=== PATIENT | female | born 1960 | race Caucasian/White ===

== ENCOUNTER → 2017-01-20 | Outpatient (CLI) | payer OTHER ==
[~2017-01-20] VITALS: Ht 170.2 cm; Wt 77.1 kg
[~2017-01-20] MED LIST: AGM875T PO; ASP325TEC PO; AZITHROMYCIN 500 MG/NS 250 ML IVPB IV ONE; BPR150TCR PO; BUPR150T6 PO; FLUT1DIS26 IH; HYOS0.1283 SL; IBUP-15 PO; LORA0.5T PO; LORA1TAB PO; NS (IVPB) 50 ML ONE; NS IV 1000 ML 1,000 ML IV ONE; NS IV 1000 ML 1,000 ML ONE; ONDA8TAB13 PO; PROMETHAZINE/ CODEINE SYRUP 5 ML UDC PO ONE; SODIUM CHLORIDE (ADD-VANTAGE) 250 ML ONE; TRM50T PO; cefTRIAXone 1 GM (ROCEPHIN) VIAL ONE; cefTRIAXone 1 GM/NS 50 ML IVPB IV ONE
--- OUTSIDE RECORDS SUMMARY | 2017-01-20 12:10 | XMS REPORT | Continuity of Care Document ---
Author Author [facility] Organization [facility] Address Unknown Phone Unavailable Care Team Providers Care Spd Manager Name Role Phone No Pcp, Na PCP Unavailable Source Comments Some departments are not documenting in the electronic medical record. If you do not see the information that you expected, contact Release of Information in the Health Information Management department at [phone] for further assistance in locating additional records.[facility] Active Allergies and Adverse Reactions Not on File Current Medications Not on file Active Problems Not on file Social History Tobacco Use Types Packs/Day Years Used Date Never Assessed Plan of Care Health Maintenance Due Date Last Done Comments Physical (Comprehensive) 1965 Exam Pertussis Vaccine 1969 Tetanus Vaccine 1975 Cervical Cancer Screening 1979 Breast Cancer Screening 1998 Colorectal Cancer 2008 Screening Influenza Vaccine 07/23/2016 Results from Last 3 Months Not on file
[2017-01-20 12:46] LABS: MEAN PLATELET VOLUME 11.6 FL (7.4-10.4); RED BLOOD COUNT 4.02 10^6/uL (4.35-5.85); RED CELL DISTRIBUTION WIDTH 12.4 % (10.0-14.5); WHITE BLOOD COUNT 5.9 10^3/uL (4.3-11.0)
--- NOTE | 2017-01-20 12:51 | Diagnostic Imaging Report ---
Portable upright radiograph of the chest. INDICATION: Pneumonia. COMPARISON: 04/15/2013. FINDINGS: The lungs are hyperinflated. Mild thickening in the interstitial markings seen. The heart size is normal. No effusion or pneumothorax. The mediastinum and dorota appear unremarkable. Surgical clips projecting over the lower thorax bilaterally seen. IMPRESSION: Hyperinflated clear lungs. Dictated by: Dictated on workstation # [id number]
[2017-01-20 12:55] VITALS: BP 100/59
[2017-01-20 13:06] LABS: ALANINE AMINOTRANSFERASE 30 U/L (0-55); ALBUMIN 4.1 G/DL (3.2-4.5); ANION GAP 12 MMOL/L (5-14); ASPARTATE AMINO TRANSFERASE 37 U/L (5-34); BILIRUBIN,TOTAL 0.4 MG/DL (0.1-1.0); BLOOD UREA NITROGEN 12 MG/DL (7-18); BUN/CREATININE RATIO 15; CARBON DIOXIDE 20 MMOL/L (21-32); CHLORIDE 110 MMOL/L (98-107); CREATININE SERUM 0.79 MG/DL (0.60-1.30); GFR ESTIMATED > 60; GLUCOSE 100 MG/DL (70-105); POTASSIUM 3.9 MMOL/L (3.6-5.0); SODIUM 142 MMOL/L (135-145); TOTAL PROTEIN 6.2 G/DL (6.4-8.2)
[2017-01-20 15:17] VITALS: BP 100/59
== END ==
LOC: SDC 12:05
PROVIDERS: ATTEND Family Medicine
DX: J18.9 Pneumonia, unspecified organism (principal); E86.0 Dehydration
CPT/HCPCS: 36415; 71010; 80053; 85027; 96365; 96367

== ENCOUNTER 2017-01-22 17:31 | Emergency (ER) | payer OTHER ==
[~2017-01-22] VITALS: Ht 170.2 cm; Wt 77.1 kg
[~2017-01-22 17:31] MED LIST changes: -HYOS0.1283 SL; -NS IV 1000 ML 1,000 ML IV SCH; -ONDA8TAB13 PO
--- OUTSIDE RECORDS SUMMARY | 2017-01-22 17:36 | XMS REPORT | Continuity of Care Document ---
Author Author [facility] Organization [facility] Address Unknown Phone Unavailable Care Team Providers Care Preparation Supervisor Name Role Phone No Pcp, Na PCP Unavailable Source Comments Some departments are not documenting in the electronic medical record. If you do not see the information that you expected, contact Release of Information in the Health Information Management department at [phone] for further assistance in locating additional records.[facility] Active Allergies and Adverse Reactions Not on [...]
[2017-01-22] MEDS ORDERED: NS IV 1000 ML 1,000 ML IV ONE (18:28)
[2017-01-22] MEDS ORDERED: KETOROLAC 30 MG/ML VIAL IVP STA (18:28)
--- NOTE | 2017-01-22 19:00 | ED General ---
General Chief Complaint: Fever-Adult/Adol Stated Complaint: FLU B Nursing Triage Note: PT REPORTS THAT SHE TESTED POSITIVE FOR INFLUENZA B TODAY AT DR ZARATE OFFICE AND WAS SENT TO HOSPITAL FOR OUTPT IV THERAPY. SHE REPORTS THAT SHE HAS FEVER, DIARRHEA AND GENERALIZED MALAISE. SHE STATES SHE DOESNT FEEL THOUGH THE IV FLUIDS HAVE HELPED HER. SHE ALSO REPORTS THAT SHE GOT A PRESCRIPTION FOR TAMIFLU TODAY AND TOOK THE FIRST DOSE AT APPROX 1700. SHE REPORTS TAKING TYLENOL AT 16[address] FOR F[address] SHE STATES DR ZARATE OFFICE INSTRUCTED HER TO COME TO THE ED FOR POSSIBLE ADMISSION TO THE HOSPITAL. Nursing Sepsis Screen: No Definite Risk Source of Information: Patient Exam Limitations: No Limitations (SHAYE ISABEL MD) History of Present Illness Time Seen by Provider: 18:40 Initial Comments Here with report overall not feeling well. This is been going on for a few days. She is had outpatient IV fluids on 2 separate days as well as an x-ray 2 days ago. She was noted to have influenza B today and started on Tamiflu tonight. She also reports being on some antibiotics. Reports that she has had fairly significant diarrhea today and noted that it was somewhat red appearing this evening. Timing/Duration: 2-3 Days, Getting Worse Severity: Moderate, Severe Associated Systoms: No Chest Pain, No Cough, Fever/Chills Nausea/VomitingNo Shortness of Air, Weakness (SHAYE ISABEL MD) Allergies and Home Medications Allergies Coded Allergies: morphine (Unverified Allergy, Unknown, 06/08/11) Home Medications Bupropion Hcl 150 Mg Tab.sr.24h 150 MG PO DAILY (Reported) Lorazepam 0.5 Mg Tablet 0.5 MG PO HS PRN PRN (Reported) PRN SLEEP Constitutional: chills fever malaise EENTM: nose congestion Respiratory: coughNo short of breath Cardiovascular: no symptoms reported Gastrointestinal: see HPI abdominal pain (overall cramping) diarrhea nauseaNo vomiting Musculoskeletal: no symptoms reported Skin: no symptoms reported Psychiatric/Neurological: No Symptoms Reported (SHAYE ISABEL MD) All Other Systems Reviewed Negative Unless Noted: Yes (SHAYE ISABEL MD) Past Bmpmidt-Qmhtca-Rnscar Hx Patient Social History Alcohol Use: Denies Use Recreational Drug Use: No Smoking Status: Never a Smoker 2nd Hand Smoke Exposure: No Recent Foreign Travel: No Contact w/Someone Who Travel: No Recent Infectious Disease Expo: No Recent Hopitalizations: No (SHAYE ISABEL MD) Immunizations Up To Date Tetanus Booster (TDap): Unknown (SHAYE ISABEL MD) Seasonal Allergies Seasonal Allergies: No (SHAYE ISABEL MD) Surgeries HX Surgeries: Yes (BILAT MASTECTOMY IN 2010) Surgeries: Hysterectomy (SHAYE ISABEL MD) Respiratory Hx Respiratory Disorders: Yes Respiratory Disorders: Pneumonia (SHAYE ISABEL MD) Cardiovascular Hx Cardiac Disorders: No (SHAYE ISABEL MD) Neurological Hx Neurological Disorders: No (SHAYE ISABEL MD) Reproductive System Hx Reproductive Disorders: No Sexually Transmitted Disease: No BUSINESS PROCESS EXPERT History: Hysterectomy (SHAYE ISABEL MD) Genitourinary Hx Genitourinary Disorders: No (SHAYE ISABEL MD) Gastrointestinal Hx Gastrointestinal Disorders: No (SHAYE ISABEL MD) Musculoskeletal Hx Musculoskeletal Disorders: No (SHAYE ISABEL MD) Endocrine Hx Endocrine Disorders: No (SHAYE ISABEL MD) HEENT HX ENT Disorders: No Loss of Vision: Denies Hearing Impairment: Denies (SHAYE ISABEL MD) Cancer Hx Cancer: Yes Cancer: Breast (SHAYE ISABEL MD) Psychosocial Hx Psychiatric Problems: Yes Behavioral Health Disorders: Anxiety (SHAYE ISABEL MD) Integumentary HX Skin/Integumentary Disorder: No (SHAYE ISABEL MD) Blood Transfusions Hx Blood Disorders: No (SHAYE ISABEL MD) Reviewed Nursing Assessment Reviewed/Agree w Nursing PMH: Yes (SHAYE SIABEL MD) Family Medical History Significant Family History: No Pertinent Family Hx (SHAYE ISABEL MD) Physical Exam-Suspected Sepsis Physical Exam Vital Signs Vital Sign - Last 12Hours 01/22/17 18:07 Temp 100.2 Pulse 88 Resp 16 B/P 101/55 Pulse Ox 95 O2 Delivery Room Air (ARIE KANG) Vital Signs Capillary Refill : Less Than 3 Seconds (SHAYE ISABEL MD) Blood Pressure Mean: 70 General Appearance: No Apparent Distress WD/WN HEENT: PERRL/EOMI Pharynx Normal Neck: Non Tender Supple Respiratory: Lungs Clear Normal Breath Sounds Cardiovascular: No Murmur Tachycardia Gastrointestinal: Soft Tenderness (mild diffusely greatest over the suprapubic region) Rectal: Normal Rectal Tone Heme Negative StoolNo Hemorrhoids, No Tenderness Back: Normal Inspection No CVA Tenderness No Vertebral Tenderness Extremity: Normal Capillary Refill Non Tender No Calf Tenderness Neurologic/Psychiatric: Alert Oriented x3 Skin: normal color warm/dryNo rash (SHAYE ISABEL MD) Progress/Results/Core Measures Suspected Sepsis Recent Fever Within 48 Hours: Yes Infection Criteria Present: None New/Unexplained Altered Menta: No Sepsis Screen: No Definite Risk Sepsis Diagnosis: SIRS Temperature:100.2 Pulse: 88 Respiratory Rate: 16 Laboratory Tests 01/22/17 19:05: White Blood Count 2.9L Blood Pressure 101 /55 Mean: 70 Laboratory Tests 01/22/17 19:05: Creatinine 0.72, Platelet Count 171, Total Bilirubin 0.3 (SHAYE ISABEL MD) Results/Orders Lab Results Laboratory Tests Test 01/22/17 19:05 Range/Units Alanine Aminotransferase (ALT/SGPT) 27 0-55 U/L Albumin 3.8 3.2-4.5 G/DL Alkaline Phosphatase 72 40-136 U/L Anion Gap 10 5-14 MMOL/L Aspartate Amino Transf (AST/SGOT) 26 5-34 U/L BUN/Creatinine Ratio 7 Basophils # (Auto) 0.0 0.0-0.1 10^3/uL Basophils (%) (Auto) 0 0-10 % Blood Urea Nitrogen 5 L 7-18 MG/DL Calcium Level 8.6 8.5-10.1 MG/DL Carbon Dioxide Level 22 21-32 MMOL/L Chloride Level 110 H 98-107 MMOL/L Creatinine 0.72 0.60-1.30 MG/DL Eosinophils # (Auto) 0.0 0.0-0.3 10^3/uL Eosinophils (%) (Auto) 0 0-10 % Estimat Glomerular Filtration Rate > 60 Glucose Level 95 70-105 MG/DL Hematocrit 35 35-52 % Hemoglobin 12.0 11.5-16.0 G/DL Lactic Acid Level 0.78 0.50-2.00 MMOL/L Lymphocytes # (Auto) 0.6 L 1.0-4.0 X 10^3 Lymphocytes (%) (Auto) 21 12-44 % Mean Corpuscular Hemoglobin 31 25-34 PG Mean Corpuscular Hemoglobin Concent 35 32-36 G/DL Mean Corpuscular Volume 88 80-99 FL Mean Platelet Volume 11.2 H 7.4-10.4 FL Monocytes # (Auto) 0.3 0.0-1.0 X 10^3 Monocytes (%) (Auto) 11 0-12 % Neutrophils # (Auto) 2.0 1.8-7.8 X 10^3 Neutrophils (%) (Auto) 68 42-75 % Platelet Count 171 130-400 10^3/uL Potassium Level 3.5 L 3.6-5.0 MMOL/L Red Blood Count 3.94 L 4.35-5.85 10^6/uL Red Cell Distribution Width 12.2 10.0-14.5 % Sodium Level 142 135-145 MMOL/L Total Bilirubin 0.3 0.1-1.0 MG/DL Total Protein 5.9 L 6.4-8.2 G/DL White Blood Count 2.9 L 4.3-11.0 10^3/uL (ARIE KANG) Lab Results Laboratory Tests Test 01/22/17 19:05 Range/Units Alanine Aminotransferase (ALT/SGPT) 27 0-55 U/L Albumin 3.8 3.2-4.5 G/DL Alkaline Phosphatase 72 40-136 U/L Anion Gap 10 5-14 MMOL/L Aspartate Amino Transf (AST/SGOT) 26 5-34 U/L BUN/Creatinine Ratio 7 Basophils # (Auto) 0.0 0.0-0.1 10^3/uL Basophils (%) (Auto) 0 0-10 % Blood Urea Nitrogen 5 L 7-18 MG/DL Calcium Level 8.6 8.5-10.1 MG/DL Carbon Dioxide Level 22 21-32 MMOL/L Chloride Level 110 H 98-107 MMOL/L Creatinine 0.72 0.60-1.30 MG/DL Eosinophils # (Auto) 0.0 0.0-0.3 10^3/uL Eosinophils (%) (Auto) 0 0-10 % Estimat Glomerular Filtration Rate > 60 Glucose Level 95 70-105 MG/DL Hematocrit 35 35-52 % Hemoglobin 12.0 11.5-16.0 G/DL Lactic Acid Level 0.78 0.50-2.00 MMOL/L Lymphocytes # (Auto) 0.6 L 1.0-4.0 X 10^3 Lymphocytes (%) (Auto) 21 12-44 % Mean Corpuscular Hemoglobin 31 25-34 PG Mean Corpuscular Hemoglobin Concent 35 32-36 G/DL Mean Corpuscular Volume 88 80-99 FL Mean Platelet Volume 11.2 H 7.4-10.4 FL Monocytes # (Auto) 0.3 0.0-1.0 X 10^3 Monocytes (%) (Auto) 11 0-12 % Neutrophils # (Auto) 2.0 1.8-7.8 X 10^3 Neutrophils (%) (Auto) 68 42-75 % Platelet Count 171 130-400 10^3/uL Potassium Level 3.5 L 3.6-5.0 MMOL/L Red Blood Count 3.94 L 4.35-5.85 10^6/uL Red Cell Distribution Width 12.2 10.0-14.5 % Sodium Level 142 135-145 MMOL/L Total Bilirubin 0.3 0.1-1.0 MG/DL Total Protein 5.9 L 6.4-8.2 G/DL White Blood Count 2.9 L 4.3-11.0 10^3/uL (SHAYE ISABEL MD) Medications Given in ED Current Medications Medications Dose Ordered Sig/Sharon Route Start Time Stop Time Status Last Admin Dose Admin Hyoscyamine Sulfate 0.125 mg ONCE ONCE SL 01/22/17 20:30 01/22/17 20:31 DC 01/22/17 20:29 0.125 MG Ondansetron HCl 4 mg ONCE ONCE IVP 01/22/17 20:30 01/22/17 20:31 DC 01/22/17 20:30 4 MG Sodium Chloride 1,000 ml @ 0 mls/hr Q0M ONCE IV 01/22/17 18:28 01/22/17 18:29 DC 01/22/17 19:05 0 MLS/HR (ARIE KANG) Vital Signs/I&O Vital Sign - Last 12Hours 01/22/17 18:07 Temp 100.2 Pulse 88 Resp 16 B/P 101/55 Pulse Ox 95 O2 Delivery Room Air (ARIE KANG) Vital Signs/I&O Capillary Refill : Less Than 3 Seconds (SHAYE ISABEL MD) Blood Pressure Mean: 70 Progress Note : Progress Note Seen and evaluated. IV, labs and UA ordered. Hemoccult ordered. Reviewed previous labs and chest x-ray. Monitor patient. Toradol 30 mg IV and normal saline 1 L bolus ordered. Monitor patient. 2021:No acute findings on labs. This was discussed with Dr. Gilliland. She agrees with continuing outpatient management. Patient states that she feels a little better. We will give Zofran 4 mg IV as well as Levsin 0.125 mg by mouth. Discharged home with return precautions. Patient verbalize understanding instructions and agreement with plan. (SHAYE ISABEL MD) Departure Impression Impression: Primary Impression: Influenza Disposition: HOME, SELF-CARE Condition: Improved Departure-Patient Inst. Decision time for Depature: 21:17 (SHAYE ISABEL MD) Referrals: TYLER GILLILAND MD (PCP/Family) Primary Care Physician Add. Discharge Instructions: All discharge instructions reviewed with patient and/or family. Voiced understanding. Medications as instructed. Stop Cefdinir. Continue azithromycin as instructed. Drink plenty of fluids. Tylenol extra strength [id number] 1000 mg by mouth every 6 hours as needed for pain, headache, or fever. Ibuprofen 800 mg by mouth every 8 hours as needed for pain, fever, or headache. Rest. Follow-up with Dr. Gilliland early this week for recheck, call first thing Wednesday morning for appointment time. Return to the emergency department for worsened fever, pain, headache, vomiting, decreased urination, inability to urinate, abdominal swelling, shortness of breath, or any other concerns. Scripts Ondansetron (Ondansetron Odt)8 Mg Tab.rapdis8 Mg PO Q4H PRN NAUSEA/VOMITING #10 TAB Ref 0 Prov:ARIE KANG 01/22/17 Hyoscyamine Sulfate (Levsin-Sl)0.125 Mg Tab.subl0.125 Mg SL Q6H PRN SPASMS #14 TAB Ref 0 Prov:ARIE KANG 01/22/17 SHAYE ISABEL MD Jan 22, 2017 19:00 ARIE KANG Jan 22, 2017 21:41
[2017-01-22 19:17] LABS: BASOPHILS % (AUTO) 0 % (0-10); EOSINOPHILS % (AUTO) 0 % (0-10); LYMPHOCYTES # (AUTO) 0.6 X 10^3 (1.0-4.0); LYMPHOCYTES % (AUTO) 21 % (12-44); MEAN CORPUSCULAR HEMOGLOBIN 31 PG (25-34); MEAN CORPUSCULAR HGB CONC 35 G/DL (32-36); MEAN CORPUSCULAR VOLUME 88 FL (80-99); MEAN PLATELET VOLUME 11.2 FL (7.4-10.4); MONOCYTES # (AUTO) 0.3 X 10^3 (0.0-1.0); MONOCYTES % (AUTO) 11 % (0-12); NEUTROPHILS % (AUTO) 68 % (42-75); PLATELET COUNT 171 10^3/uL (130-400); RED BLOOD COUNT 3.94 10^6/uL (4.35-5.85); RED CELL DISTRIBUTION WIDTH 12.2 % (10.0-14.5); WHITE BLOOD COUNT 2.9 10^3/uL (4.3-11.0)
[2017-01-22 19:42] LABS: ALANINE AMINOTRANSFERASE 27 U/L (0-55); ALBUMIN 3.8 G/DL (3.2-4.5); ASPARTATE AMINO TRANSFERASE 26 U/L (5-34); BILIRUBIN,TOTAL 0.3 MG/DL (0.1-1.0); BLOOD UREA NITROGEN 5 MG/DL (7-18); BUN/CREATININE RATIO 7; CALCIUM 8.6 MG/DL (8.5-10.1); CARBON DIOXIDE 22 MMOL/L (21-32); CREATININE SERUM 0.72 MG/DL (0.60-1.30); GFR ESTIMATED > 60; GLUCOSE 95 MG/DL (70-105); TOTAL PROTEIN 5.9 G/DL (6.4-8.2)
[2017-01-22 19:56] LABS: ANION GAP 10 MMOL/L (5-14); CHLORIDE 110 MMOL/L (98-107); POTASSIUM 3.5 MMOL/L (3.6-5.0); SODIUM 142 MMOL/L (135-145)
[2017-01-22] MEDS ORDERED: ONDANSETRON 4 MG/2 ML (SDV) Z0FRAN IVP ONE (20:30)
[2017-01-22] MEDS ORDERED: HYOSCYAMINE 0.125 MG (LEVSIN) TAB SL ONE (20:30)
[2017-01-22] MEDS ORDERED: RX-ONDANSETRON 4 MG ODT (ZOFRAN) PPK #4 PO STA (21:14)
[2017-01-22] MEDS ORDERED: RX-HYOSCYAMINE 0.125 MG SL (LEVSIN) PPK#6 SL STA (21:14)
[2017-01-22] MEDS ORDERED: RX-HYOSCYAMINE 0.125 MG SL (LEVSIN) PPK#6 ONE (21:15)
[2017-01-22] MEDS ORDERED: RX-ONDANSETRON 4 MG ODT (ZOFRAN) PPK #4 ONE (21:15)
[2017-01-22] MEDS ORDERED: HYOS0.1283 SL (21:37)
[2017-01-22] MEDS ORDERED: ONDA8TAB13 PO (21:37)
[2017-01-22 22:00] VITALS: BP 111/71
== END 2017-01-22 22:00 | disposition home or self-care (01) ==
LOC: EDUNIT# 17:31 → ER 17:32
DX: J10.2 Influenza due to other identified influenza virus with gastrointestinal manifestations (principal); R50.9 Fever, unspecified
CPT/HCPCS: 36415; 80053; 83605; 85025; 87040; 96361; 96374; 96375

== ENCOUNTER → 2017-01-22 | Outpatient (CLI) | payer OTHER ==
[~2017-01-22] VITALS: Ht 170.2 cm; Wt 77.1 kg
[~2017-01-22] MED LIST changes: -AZITHROMYCIN 500 MG/NS 250 ML IVPB IV ONE; -NS (IVPB) 50 ML ONE; -NS IV 1000 ML 1,000 ML IV ONE; +NS IV 1000 ML 1,000 ML IV SCH; -NS IV 1000 ML 1,000 ML ONE; -PROMETHAZINE/ CODEINE SYRUP 5 ML UDC PO ONE; -SODIUM CHLORIDE (ADD-VANTAGE) 250 ML ONE; -cefTRIAXone 1 GM (ROCEPHIN) VIAL ONE; -cefTRIAXone 1 GM/NS 50 ML IVPB IV ONE
--- OUTSIDE RECORDS SUMMARY | 2017-01-22 11:22 | XMS REPORT | Continuity of Care Document ---
Author Author [facility] Organization [facility] Address Unknown Phone Unavailable Care Team Providers Care Twister Tender Name Role Phone No Pcp, Na PCP Unavailable Source Comments Some departments are not documenting in the electronic medical record. If you do not see the information that you expected, contact Release of Information in the Health Information Management department at [phone] for further assistance in locating additional records.[facility] Active Allergies and Adverse Reactions Not [...]
[2017-01-22 11:50] VITALS: BP 114/74
[2017-01-22 12:55] VITALS: BP 114/74
== END ==
LOC: SDC 11:18
PROVIDERS: ATTEND Nurse Practitioner Family
DX: R50.9 Fever, unspecified (principal); R34 Anuria and oliguria
CPT/HCPCS: 96360

== ENCOUNTER → 2017-10-28 | Outpatient (CLI) | payer OTHER ==
[~2017-10-28] MED LIST changes: +CATHETER FLUSH 10 ML SYR IV PRN; +HYOS0.1283 SL; +IOHEXOL 350 MG/ML 150 ML (OMNIPAQUE 350) VIAL IV ONE; +NS 100 ML (IVPB) BAG IV ONE; +ONDA8TAB13 PO
--- NOTE | 2017-10-28 18:11 | Diagnostic Imaging Report ---
INDICATION: Breast cancer, left chest pain, history of mastectomy and reconstruction. Comparison limited to a nonenhanced chest CT performed in 2009. FINDINGS: Neck: There is some supraglottic narrowing without identifiable abnormal soft tissue. This is presumed from swallowing or other motion during the study. Nasopharynx, oropharynx and hypopharynx revealed no identifiable mass, fluid collection or suspicious nodes. Few lymph nodes with well less than 1 cm short axis diameters in the bilateral carotid chains are present without morphological distortion or pathological enlargement. There is a shallow left maxillary sinus air-fluid level and moderate air-fluid level in the right maxillary with right greater than left maxillary sinus membrane thickening. There is partial opacification of ethmoid air cells. The sphenoids are clear. There is no mastoid effusion and the middle ear cavities clear. No bony destruction. Chest: Reconstructions with bilateral breast implants unchanged from prior. No abnormality along the internal mammary chains. The dorota and mediastinum appeared unremarkable. Aorta is patent and nonaneurysmal. Focal pulmonary opacity in the lingular segment of the left upper lobe does not have mass-like density or morphology and is suggestive of a focus of infiltrate. Some minimal subpleural infiltrate in the posterior sulcal right lower lobe present. Lungs otherwise clear. There is no thoracic effusion or pneumothorax. No acute or suspicious chest wall pathology. The axilla normal. Abdomen: The liver, spleen, adrenals, pancreas unremarkable. The kidneys unobstructed. There is no bowel obstruction. There is no ascites, adenopathy, fluid collection or inflammatory process. IMPRESSION: 1. Neck: No pathological-appearing nodes, suspicious mass, fluid collection or bony destruction. No abscess. Paranasal sinusitis noted. 2. Chest: Stable postoperative change. Airspace-like density opacity in lingular segment of left upper lobe at the base anteriorly and inferiorly suggestive of focus of pneumonia. CT followup suggested within 3 months. Some minimal subpleural infiltrate or atelectasis in the posterior sulcal right lower lobe. No soft tissue density, lung mass and no thoracic adenopathy or effusion. Stable postoperative change. 3. Abdomen: Negative. Dictated by: Dictated on workstation # [id number]
== END ==
LOC: RAD 14:20
PROVIDERS: ATTEND Nurse Practitioner Adult Health
DX: C50.411 Malignant neoplasm of upper-outer quadrant of right female breast (principal); J32.9 Chronic sinusitis, unspecified; Z90.13 Acquired absence of bilateral breasts and nipples
CPT/HCPCS: 70491; 71260; 74160

== ENCOUNTER → 2017-10-29 | Outpatient (CLI) | payer OTHER ==
[~2017-10-29] MED LIST changes: -CATHETER FLUSH 10 ML SYR IV PRN; -IOHEXOL 350 MG/ML 150 ML (OMNIPAQUE 350) VIAL IV ONE; -NS 100 ML (IVPB) BAG IV ONE
== END ==
LOC: CARD 12:20
PROVIDERS: ATTEND Internal Medicine Cardiovascular Disease
DX: R07.89 Other chest pain (principal); R06.09 Other forms of dyspnea; I25.10 Atherosclerotic heart disease of native coronary artery without angina pectoris; C50.411 Malignant neoplasm of upper-outer quadrant of right female breast
CPT/HCPCS: 93225; 93226; 93306

== ENCOUNTER 2017-11-08 10:28 | Day surgery (SDC) | payer OTHER ==
[~2017-11-08] VITALS: Ht 170.2 cm; Wt 68.0 kg
[2017-11-08] VITALS (10 sets, daily range): BP systolic 100–128; BP diastolic 66–86
[~2017-11-08 10:28] MED LIST changes: -ASCO500T5 PO; -CALC-6 PO; -CATHETER FLUSH 10 ML SYR IV PRN; -CHOL200025 PO; -FESO4TAB PO; -LEVO500T2 PO; -MULT-35 PO; -NS IV 1000 ML 1,000 ML IV SCH; -NS IV 1000 ML 1,000 ML ONE; -REGADENOSON 0.4 MG/5 ML SYR (LEXISCAN) IV ONE
[2017-11-08] MEDS ORDERED: NS IV 1000 ML 1,000 ML IV SCH ×2 (10:39→11:43)
[2017-11-08 10:58] LABS: MEAN PLATELET VOLUME 11.5 FL (7.4-10.4); RED BLOOD COUNT 3.97 10^6/uL (4.35-5.85); RED CELL DISTRIBUTION WIDTH 12.9 % (10.0-14.5); WHITE BLOOD COUNT 7.4 10^3/uL (4.3-11.0)
[2017-11-08] MEDS ORDERED: LIDOCAINE 1% INJ 50 ML (XYLOCAINE) VIAL ONE (10:58)
[2017-11-08] MEDS ORDERED: NS IV 1000 ML 1,000 ML ONE (10:58)
[2017-11-08] MEDS ORDERED: HEParin (CATH LAB) 2,000 ML IV ONE (10:58)
--- NOTE | 2017-11-08 10:59 | Diagnostic Imaging Report ---
Portable upright radiograph of the chest. INDICATION: Abnormal stress test. FINDINGS: The lungs are hyperinflated with no focal consolidation. The heart size is at the upper limits of normal. Surgical clips projecting over the lower lung seen. The heart size is normal. No effusion or pneumothorax. The mediastinum and doroat appear unremarkable. IMPRESSION: COPD. No acute process. Dictated by: Dictated on workstation # [id number]
[2017-11-08 11:02] LABS: PROTHROMBIN TIME PATIENT 13.4 SEC (12.2-14.7)
[2017-11-08] MEDS ORDERED: MIDAZOLAM 2 MG/2 ML (VERSED) VIAL ONE (11:07)
[2017-11-08] MEDS ORDERED: fentaNYL INJECTION 100 MCG/2 ML AMP ONE (11:07)
[2017-11-08] MEDS ORDERED: FESO4TAB PO ×2 (11:09)
[2017-11-08] MEDS ORDERED: CALC-6 PO ×2 (11:09)
[2017-11-08] MEDS ORDERED: LEVO500T2 PO ×2 (11:09)
[2017-11-08] MEDS ORDERED: LORA0.5T PO ×2 (11:09)
[2017-11-08] MEDS ORDERED: ASCO500T5 PO ×2 (11:09)
[2017-11-08] MEDS ORDERED: CHOL200025 PO ×2 (11:09)
[2017-11-08] MEDS ORDERED: MULT-35 PO ×2 (11:10)
[2017-11-08 11:12] LABS: ALANINE AMINOTRANSFERASE 20 U/L (0-55); ALBUMIN 4.1 GM/DL (3.2-4.5); ANION GAP 8 MMOL/L (5-14); ASPARTATE AMINO TRANSFERASE 22 U/L (5-34); BILIRUBIN,TOTAL 0.4 MG/DL (0.1-1.0); BLOOD UREA NITROGEN 13 MG/DL (7-18); BUN/CREATININE RATIO 18; CALCIUM 8.6 MG/DL (8.5-10.1); CARBON DIOXIDE 24 MMOL/L (21-32); CHLORIDE 109 MMOL/L (98-107); CHOLESTEROL 208 MG/DL (< 200); CREATININE SERUM 0.72 MG/DL (0.60-1.30); DIRECT LDL 104 MG/DL (1-129); GFR ESTIMATED > 60; GLUCOSE 111 MG/DL (70-105); POTASSIUM 4.1 MMOL/L (3.6-5.0); SODIUM 141 MMOL/L (135-145); TOTAL PROTEIN 6.2 GM/DL (6.4-8.2); TRIGLYCERIDES 94 MG/DL (<150); VLDL CHOLESTEROL 19 MG/DL (5-40)
[2017-11-08] MEDS ORDERED: INFLUENZA TRIvalent 2017-2018 0.5 ML/45 MCG SYR IM ONE (11:15)
--- NOTE | 2017-11-08 11:16 | Cardiac Procedure Note-CS/ASA ---
Pre-Procedure Note Pre-Op Procedure Note H&P Reviewed The H&P was reviewed, patient examined and no changes noted. Date H&P Reviewed: Nov 08, 2017 Time H&P Reviewed: 11:16 Conscious Sedation Pre-Proced Time Reviewed: 11:16 ASA Class: 3 Airway Mallampati Classification: ([place] appropriate class) I. II. III, IV Lungs Heart ASA score ASA 1: a normal healthy patient ASA 2: a patient with a mild systemic disease (mid diabetes, controlled hypertension, obesity x ASA 3: a patient with a severe systemic disease that limits activity (angina , COPD, prior Myocardial infarction) ASA 4: a patient with an incapacitating disease that is a constant threat to life (CHF, renal failure) ASA 5: a moribund patient not expected to survive 24 hrs. (ruptured aneurysm) ASA 6: a declared brain patient whose organs are being harvested. For emergent operations, add the letter E after the classification Grade 3 Sedation Plan: Analgesia, Amnesia, Plan communicated to team members, Discussed options with patient/fam, Discussed risks with patient/fam Note The patient is an appropriate candidate to undergo the planned procedure, sedation, and anesthesia. The patient immediately re-assessed prior to indication. MELINDA DAWN MD Nov 08, 2017 11:16
--- NOTE | 2017-11-08 11:44 | Discharge Inst-Post CATH ---
Discharge Inst-CATH Post Cardiac Cath D/C Inst Follow Up/Plan Appointment with Dr. Dietz's office in 2-4 weeks CARDIAC CATH DISCHARGE INSTRUCTIONS *Hold Metformin for 48 hours post heart cath. ACTIVITY * Go Home directly and rest. * Limit activity of the leg (or wrist if it was used) for 7 days including aerobics, swimming, jogging, bicycling, etc. * Restrict stair-climbing for 7 days if possible, if not, climb up with your non -cath leg, then bring together on the same step. * Avoid lifting, pushing, pulling or excessive movement of the affected extremity for 7 days. * Customary sexual activity may be resumed after 2 days-use caution not to use a position that strains or causes pain to the affected extremity. * No driving for 24 hours. * NO SMOKING. * Avoid straining for bowel movements for 7 days. * Gentle walking on level ground is allowed. * Returning to work will depend on the type of procedure and the results. Your doctor will discuss this with you. CALL YOUR DOCTOR FOR ANY OF THE FOLLOWING: *If bleeding from the puncture site occurs- Apply gentle pressure to site with clean cloth and call your doctor or EMS. * If a knot or lump forms under the skin, increases in size, or causes pain. * If bruising appears to be worsening or moving further down your leg instead of disappearing. * Temperature above 101 F. CARE OF YOUR GROIN INCISION; * Bruising or purple discoloration of the skin near the puncture site is common. * You may shower only, no bathtub bathing for 5 days. Be careful to avoid slipping as your leg may feel stiff. * If a closure device was used on your femoral artery, please see the attached guide regarding care of the device and your leg. * REMOVE the dressing from your groin the next day after your procedure in the shower. CARE OF YOUR WRIST INCISION; * Bruising or purple discoloration of the skin near the puncture site is common. * You may shower. * DO NOT submerge wrist. * Remove dressing in 24 hours. MELINDA DIETZ MD Nov 08, 2017 11:44
[2017-11-08] MEDS ORDERED: PATIENT MAY USE OWN MEDS, ALL PO SCH (11:45)
[2017-11-08 11:46] LABS: BILIRUBIN,URINE NEGATIVE (NEGATIVE); KETONES,URINE NEGATIVE (NEGATIVE); LEUKOCYTE ESTERASE ,URINE NEGATIVE (NEGATIVE); NITRITE,URINE NEGATIVE (NEGATIVE); PH,URINE 7 (5-9); PROTEIN,URINE NEGATIVE (NEGATIVE); UROBILINOGEN,URINE NORMAL (NORMAL)
--- NOTE | 2017-11-08 11:49 | Cardiac Cath Report ---
Cardiac Cath Report Physician (s)/Veterinary Medicine Scientist (s) Physician MELINDA DAWN MD Pre-Procedure Diagnosis Pre-Procedure Diagnosis: Chest pain, abnormal stress test, syncope Post-Procedure Note Procedure Start Date: Nov 08, 2017 Name of Procedure: Left heart catheterization, left ventricular pressure. [id number] Aortic arch angiogram. [id number] Findings/Procedure Note PROCEDURE NOTE: After explaining the procedure to the patient, all pros and cons were explained, all questions were answered. The patient signed the consent and then she was placed on the cardiac catheterization laboratory. The patient was placed on the cardiac catheterization laboratory. Groin was prepped SL fashion local anesthesia was used. Sheath placed in the right femoral artery. Tavo right and left catheter were used to access the coronary system. Pigtail was used to access the left ventricular cavity. Left ventriculogram was not done, pressure was measured Aortic arch angiogram was done At the end of the procedure the sheath was removed. Closure device was used FINDINGS: Hemodynamics LV 99/18, end-diastolic pressure of 18 Aorta 102/60, mean pressure of 80 ANATOMY: Left Main is short almost separate ostium to the LAD and circumflex Left Anterior Descending there is moderate in size, had mid artery myocardial bridging otherwise small vessel disease distally Left Circumflex moderate in size with no obstructive disease Right Coronory Artery is moderate in size with no significant obstructive disease LV Gram was not done, pressure was measured Aorta evaluation done with aortic arch angiogram, mild atherosclerotic plaques, no dissection or aneurysm, origin of the innominate artery, left subclavian and left carotid artery appeared normal CONCLUSION: 1. 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 Small vessel disease nonobstructive disease 3. Mildly elevated liver ventricular end-diastolic pressure 4. Normal aortic arch and great neck vessels DISCUSSION AND RECOMMENDATION: Patient had a syncopal episode with severe hypotension during Lexiscan injection in addition to significant ischemia involving the anterior wall most probably due to the hypotension and myocardial bridging. No intervention is recommended Anesthesia Type: Conscious Sedation Estimated blood loss (mL): 10 ml Contrast Amount: 43 ml Total Radiation Dose: 159 mGy Post-Procedure Diagnosis Post-operative diagnosis: Chest pain nonspecific etiology Syncope Coronary artery disease Hypotension MELINDA DAWN MD Nov 08, 2017 11:49
== END 2017-11-08 16:40 | disposition home or self-care (01) ==
LOC: CATH 10:28 → ICU 12:10 → CATH 16:40
PROVIDERS: ATTEND Internal Medicine Cardiovascular Disease
DX: I25.10 Atherosclerotic heart disease of native coronary artery without angina pectoris (principal); I73.9 Peripheral vascular disease, unspecified; C50.919 Malignant neoplasm of unspecified site of unspecified female breast; Z85.3 Personal history of malignant neoplasm of breast; Z82.49 Family history of ischemic heart disease and other diseases of the circulatory system; F41.9 Anxiety disorder, unspecified; Z90.13 Acquired absence of bilateral breasts and nipples
CPT/HCPCS: 36221; 36415; 71010; 80053; 80061; 81000; 85027; 85610; 85730; 93458

== ENCOUNTER → 2017-11-08 | Outpatient (CLI) | payer OTHER ==
[~2017-11-08] VITALS: Ht 167.6 cm; Wt 70.3 kg
[~2017-11-08] MED LIST changes: +ASCO500T5 PO; +CALC-6 PO; +CATHETER FLUSH 10 ML SYR IV PRN; +CHOL200025 PO; +FESO4TAB PO; +LEVO500T2 PO; +MULT-35 PO; +NS IV 1000 ML 1,000 ML IV SCH; +NS IV 1000 ML 1,000 ML ONE; +REGADENOSON 0.4 MG/5 ML SYR (LEXISCAN) IV ONE
[2017-11-08 08:26] VITALS: BP 87/61
[2017-11-08 08:56] VITALS: BP 94/60
[2017-11-08 09:04] VITALS: BP 94/54
[2017-11-08 09:17] VITALS: BP 108/62
[2017-11-08 09:29] VITALS: BP 100/64
[2017-11-08 09:34] VITALS: BP 107/66
--- NOTE | 2017-11-08 13:25 | STRESS TEST ---
DATE OF SERVICE: 11/08/2017 LEXISCAN MYOVIEW STRESS TEST REPORT REFERRING PHYSICIAN: Dr. Gilliland. Baseline heart rate is 74. Baseline blood pressure 93/61. Baseline EKG is sinus rhythm with no ischemic changes. In summary, the patient was hypotensive prior to the test and had a syncopal episode prior acquiring the resting images. We proceeded with LEXISCAN stress test. At the beginning of the test was borderline hypotensive, became worse after Lexiscan injection. She continued to receive IV fluid and felt slightly lightheaded. No syncope was noted again. After receiving a liter of fluid, her blood pressure was better. She had mild upper left-sided chest pain and left arm pain with Lexiscan injection. The resting and stress images were reviewed and compared in the short axis, horizontal long axis, and vertical long axis views. Review of the images showed reversible ischemia involving the whole anterior wall and anterolateral wall. SSS is 8, SDS 8. TID value 0.97. On the gated images, the left ventricle appeared to be in normal size with normal contractility, calculated ejection fraction 82%. CONCLUSION: 1. The patient had syncopal episode prior acquiring the resting images, was hypotensive throughout the test, which became slightly worse after Lexiscan injection associated with chest pain, responded to IV fluids. 2. Breast attenuation with reversible ischemia involving the whole anterior wall and anterolateral wall. 3. Normal left ventricular size with normal contractility, calculated ejection fraction 82%. Job ID: [id number] DocumentID: [id number] Dictated Date: 11/08/2017 10:13:38 Cabinet And Trim Installer Date: 11/08/2017 13:02:36 Dictated By: MELINDA DAWN MD
== END ==
LOC: CARD 07:04
PROVIDERS: ATTEND Internal Medicine Cardiovascular Disease
DX: R07.89 Other chest pain (principal); R06.09 Other forms of dyspnea; I25.10 Atherosclerotic heart disease of native coronary artery without angina pectoris; C50.411 Malignant neoplasm of upper-outer quadrant of right female breast
CPT/HCPCS: 78452; 93017

== ENCOUNTER → 2017-11-10 | Outpatient (CLI) | payer OTHER ==
[~2017-11-10] MED LIST changes: +ASCO500T5 PO; +CALC-6 PO; +CHOL200025 PO; +FESO4TAB PO; +LEVO500T2 PO; +MULT-35 PO
--- NOTE | 2017-11-10 17:44 | Diagnostic Imaging Report ---
Whole body bone scan. Technique: After the intravenous administration of 24.7 mCi of Technetium 99m MDP, whole body delayed phase bone scan images were obtained with lateral views of the head and neck and the chest regions. Indication: Breast cancer. Findings: Indeterminate mild increased foci of activity seen in the skull anteriorly in the central aspect and to the right side on the frontal views of the whole body scans. No definitive correlating areas of activity seen on the lateral projections are noted. Mild increased spine and joint activity including the shoulders, the knees and the ankles are probably degenerative. No suggestive pattern of multiple increased foci of activity particularly within the axial skeleton is seen to suggest metastatic disease. IMPRESSION: Indeterminate foci of mild increased activity projecting over the skull seen on the anterior projections of the whole body scan over the midline and along the right orbital rim area. This is favored to be posttraumatic, and/or secondary to sinus disease rather than metastasis related. Dictated by: Dictated on workstation # [id number]
== END ==
LOC: CARD 10:46
PROVIDERS: ATTEND Nurse Practitioner Adult Health
DX: C50.411 Malignant neoplasm of upper-outer quadrant of right female breast (principal); R07.89 Other chest pain; R07.81 Pleurodynia
CPT/HCPCS: 78306

== ENCOUNTER → 2017-11-29 | Outpatient (CLI) | payer OTHER ==
--- NOTE | 2017-11-29 15:56 | Diagnostic Imaging Report ---
INDICATION: Pneumonia, cough. COMPARISON: 11/08/2017. FINDINGS: Two views of the chest were obtained. The heart size is normal. The pulmonary vessels appear unremarkable. There is no pneumothorax, mediastinal widening, or pleural fluid demonstrated. The lungs are hyperinflated, consistent with COPD. The lungs are otherwise clear. There are postoperative changes in the breasts and left axilla. There are degenerative changes in the spine. IMPRESSION: No radiographic evidence of an acute cardiopulmonary abnormality. No significant interval change from the prior study. Dictated by: Dictated on workstation # [id number]
== END ==
LOC: RAD 14:47
PROVIDERS: ATTEND Nurse Practitioner Family
DX: R05 Cough (principal)
CPT/HCPCS: 71046

== ENCOUNTER → 2017-12-22 | Outpatient (CLI) | payer OTHER ==
[~2017-12-22] MED LIST changes: +RT-ALBUTEROL SULF 2.5 MG/3 ML PRE-MIX VIAL INH ONE; +RT-ALBUTEROL SULF 2.5 MG/3 ML PRE-MIX VIAL ONE
== END ==
LOC: RT 12:59
PROVIDERS: ATTEND Nurse Practitioner Family
DX: R06.09 Other forms of dyspnea (principal); J18.9 Pneumonia, unspecified organism; R93.8 Abnormal findings on diagnostic imaging of other specified body structures; R53.83 Other fatigue
CPT/HCPCS: 94060; 94726; 94729

== ENCOUNTER 2018-01-06 09:15 | Outpatient (RCR) | payer OTHER ==
[~2018-01-06 09:15] MED LIST changes: -RT-ALBUTEROL SULF 2.5 MG/3 ML PRE-MIX VIAL INH ONE; -RT-ALBUTEROL SULF 2.5 MG/3 ML PRE-MIX VIAL ONE
[2018-01-06 10:31] LABS: BASOPHILS % (AUTO) 1 % (0-10); EOSINOPHILS % (AUTO) 1 % (0-10); HEMATOCRIT 34 % (35-52); HEMOGLOBIN 11.8 G/DL (11.5-16.0); LYMPHOCYTES # (AUTO) 1.3 X 10^3 (1.0-4.0); LYMPHOCYTES % (AUTO) 27 % (12-44); MEAN CORPUSCULAR HEMOGLOBIN 31 PG (25-34); MEAN CORPUSCULAR HGB CONC 35 G/DL (32-36); MEAN CORPUSCULAR VOLUME 89 FL (80-99); MEAN PLATELET VOLUME 11.7 FL (7.4-10.4); MONOCYTES # (AUTO) 0.2 X 10^3 (0.0-1.0); MONOCYTES % (AUTO) 5 % (0-12); NEUTROPHILS # (AUTO) 3.3 X 10^3 (1.8-7.8); NEUTROPHILS % (AUTO) 67 % (42-75); PLATELET COUNT 246 10^3/uL (130-400); RED BLOOD COUNT 3.77 10^6/uL (4.35-5.85); RED CELL DISTRIBUTION WIDTH 12.9 % (10.0-14.5); WHITE BLOOD COUNT 4.9 10^3/uL (4.3-11.0)
[2018-01-06 10:49] LABS: ALANINE AMINOTRANSFERASE 21 U/L (0-55); ALBUMIN 4.1 GM/DL (3.2-4.5); ALKALINE PHOSPHATASE 57 U/L (40-136); BILIRUBIN,TOTAL 0.5 MG/DL (0.1-1.0); BUN/CREATININE RATIO 22; CARBON DIOXIDE 23 MMOL/L (21-32); CHLORIDE 108 MMOL/L (98-107); CREATININE SERUM 0.69 MG/DL (0.60-1.30); GFR ESTIMATED > 60; GLUCOSE 85 MG/DL (70-105); POTASSIUM 4.3 MMOL/L (3.6-5.0); SODIUM 140 MMOL/L (135-145); TOTAL PROTEIN 6.1 GM/DL (6.4-8.2)
== END 2018-01-24 | disposition home or self-care (01) ==
LOC: ONC 09:15
PROVIDERS: ATTEND Internal Medicine Hematology & Oncology
DX: Z08 Encounter for follow-up examination after completed treatment for malignant neoplasm (principal); Z85.3 Personal history of malignant neoplasm of breast; M85.88 Other specified disorders of bone density and structure, other site; I89.0 Lymphedema, not elsewhere classified; Z90.13 Acquired absence of bilateral breasts and nipples; Z79.899 Other long term (current) drug therapy
CPT/HCPCS: 36415; 80053; 82306; 85025; 99213

== ENCOUNTER → 2018-01-18 | Outpatient (CLI) | payer OTHER ==
[~2018-01-18] MED LIST changes: +IOHEXOL 350 MG/ML 150 ML (OMNIPAQUE 350) VIAL IV ONE; +NS 250 ML (IVPB) BAG IV ONE
--- NOTE | 2018-01-18 11:58 | Diagnostic Imaging Report ---
INDICATION: History of lung lesion, history of breast cancer and bilateral mastectomies. TECHNIQUE: CTA chest obtained with IV contrast bolus and axial slices and sagittal and coronal and MIP reconstructions. COMPARISON: Comparison made to chest CT of 10/28/2017. FINDINGS: The pulmonary parenchymal vessels are well opacified with no CT evidence of pulmonary emboli. There are no enlarged mediastinal or hilar nodes. There are bilateral breast implants. There are no overtly enlarged axillary nodes. There is no pleural or pericardial fluid. The lung windows demonstrate that the parenchymal density in the lingula of the left upper lobe which was visualized on the previous study has resolved and was probably due to inflammatory change or pneumonia. There are no discrete pulmonary parenchymal masses. There are some mild dependent atelectatic changes in the lung bases. There are mild "tree-in-bud" infiltrates in the right middle lobe and right lower lobe posteriorly which are unchanged compared to the prior study and likely inflammatory. IMPRESSION: Evidence of previous bilateral mastectomies with implants in place. The density in the lingular segment of the left upper lobe visualized on 10/28/2017 has resolved and was likely inflammatory. There are mild areas of "tree-in-bud" infiltrates in the right middle lobe and right lower lobe which are likely inflammatory as well. There are dependent atelectatic changes in the lung bases. There is no overt adenopathy. There is no evidence of pulmonary embolus. Dictated by: Dictated on workstation # [id number]
== END ==
LOC: RAD 09:17
PROVIDERS: ATTEND Nurse Practitioner Family
DX: J18.9 Pneumonia, unspecified organism (principal); J98.11 Atelectasis; R91.8 Other nonspecific abnormal finding of lung field; Z85.3 Personal history of malignant neoplasm of breast; Z90.13 Acquired absence of bilateral breasts and nipples
CPT/HCPCS: 36415; 71275; 82164

== ENCOUNTER 2018-04-27 10:06 | Outpatient (RCR) | payer OTHER ==
[2018-04-27 11:02] LABS: BASOPHILS % (AUTO) 1 % (0-10); EOSINOPHILS % (AUTO) 1 % (0-10); HEMATOCRIT 35 % (35-52); HEMOGLOBIN 12.5 G/DL (11.5-16.0); LYMPHOCYTES # (AUTO) 1.3 X 10^3 (1.0-4.0); LYMPHOCYTES % (AUTO) 31 % (12-44); MEAN CORPUSCULAR HEMOGLOBIN 32 PG (25-34); MEAN CORPUSCULAR HGB CONC 36 G/DL (32-36); MEAN CORPUSCULAR VOLUME 90 FL (80-99); MEAN PLATELET VOLUME 11.2 FL (7.4-10.4); MONOCYTES # (AUTO) 0.3 X 10^3 (0.0-1.0); MONOCYTES % (AUTO) 6 % (0-12); NEUTROPHILS # (AUTO) 2.6 X 10^3 (1.8-7.8); NEUTROPHILS % (AUTO) 62 % (42-75); PLATELET COUNT 220 10^3/uL (130-400); RED BLOOD COUNT 3.87 10^6/uL (4.35-5.85); RED CELL DISTRIBUTION WIDTH 12.6 % (10.0-14.5); WHITE BLOOD COUNT 4.2 10^3/uL (4.3-11.0)
[2018-04-27 11:19] LABS: ALANINE AMINOTRANSFERASE 26 U/L (0-55); ALBUMIN 4.4 GM/DL (3.2-4.5); ALKALINE PHOSPHATASE 57 U/L (40-136); BILIRUBIN,TOTAL 0.5 MG/DL (0.1-1.0); BUN/CREATININE RATIO 18; CALCIUM 9.4 MG/DL (8.5-10.1); CARBON DIOXIDE 23 MMOL/L (21-32); CHLORIDE 108 MMOL/L (98-107); CREATININE SERUM 0.71 MG/DL (0.60-1.30); GFR ESTIMATED > 60; GLUCOSE 89 MG/DL (70-105); POTASSIUM 4.3 MMOL/L (3.6-5.0); SODIUM 139 MMOL/L (135-145); TOTAL PROTEIN 6.5 GM/DL (6.4-8.2)
== END 2018-07-26 | disposition home or self-care (01) ==
LOC: ONC 10:06
PROVIDERS: ATTEND Internal Medicine Hematology & Oncology
DX: C50.411 Malignant neoplasm of upper-outer quadrant of right female breast (principal); R07.89 Other chest pain; R07.81 Pleurodynia
CPT/HCPCS: 36415; 80053; 85025; 99213

== ENCOUNTER → 2018-04-27 | Outpatient (CLI) | payer OTHER ==
[~2018-04-27] MED LIST changes: -IOHEXOL 350 MG/ML 150 ML (OMNIPAQUE 350) VIAL IV ONE; -NS 250 ML (IVPB) BAG IV ONE
--- NOTE | 2018-04-27 12:06 | Diagnostic Imaging Report ---
PROCEDURE: CT chest without contrast. TECHNIQUE: Multiple contiguous axial images were obtained through the chest without the use of intravenous contrast. INDICATION: Dyspnea on exertion and fatigue. History of breast cancer. Pneumonia. COMPARISON: 01/18/2018. Findings: Mild tree-in-bud infiltrate seen within the posterolateral right middle lobe appears minimally improved but persists. Some tree-in-bud infiltrate in the posterior right lower lobe is unchanged. Mild dependent bilateral basilar atelectasis is improved. No new pulmonary parenchymal abnormality is seen. There is no pneumothorax or pleural fluid. There appears to have been prior left thyroidectomy. There is no new adenopathy. There are some calcified right hilar and subcarinal lymph nodes. Bilateral breast implants are again demonstrated. No acute abnormality is seen in the visualized upper abdomen. There are degenerative changes in the spine. IMPRESSION: 1. Persistent tree-in-bud nodular infiltrate within the lateral posterior right middle lobe and posterior right lung base. When compared to the prior study, there has been minimal improvement in the right middle lobe. Findings are otherwise unchanged and while nonspecific likely inflammatory. 2. No new or additional abnormality is demonstrated in the chest. Dictated by: Dictated on workstation # [id number]
== END ==
LOC: RAD 11:01
PROVIDERS: ATTEND Nurse Practitioner Family
DX: J18.9 Pneumonia, unspecified organism (principal); Z85.3 Personal history of malignant neoplasm of breast
CPT/HCPCS: 71250

== ENCOUNTER 2018-05-06 13:00 | Outpatient (CLI) | payer OTHER ==
[~2018-05-06] VITALS: Ht 170.2 cm; Wt 68.0 kg
== END 2018-05-06 13:55 ==
LOC: PREOP 13:00
PROVIDERS: ATTEND Internal Medicine Critical Care Medicine
DX: J44.9 Chronic obstructive pulmonary disease, unspecified (principal); R93.8 Abnormal findings on diagnostic imaging of other specified body structures; R06.09 Other forms of dyspnea

== ENCOUNTER 2018-05-09 07:11 | Day surgery (SDC) | payer OTHER ==
[~2018-05-09] VITALS: Ht 170.2 cm; Wt 68.0 kg
[2018-05-09] MEDS ORDERED: LIDOCAINE PF 1% 2 ML AMP INJ ONE (07:12)
[2018-05-09] MEDS ORDERED: LIDOCAINE 4% INJ (XYLOCAINE) 5ML AMP INJ ONE (07:12)
[2018-05-09] MEDS ORDERED: LIDOCAINE JELLY 2% (XYLOCAINE) 30 ML TUBE TOP ONE (07:12)
[2018-05-09] MEDS ORDERED: NS IV 500 ML 500 ML ONE (07:19)
[2018-05-09 07:25] VITALS: BP 114/76
[2018-05-09] MEDS ORDERED: NS IV 500 ML 500 ML IV PRN (07:27)
--- NOTE | 2018-05-09 07:47 | Progress Note-Pre Operative ---
Pre-Operative Progress Note H&P Reviewed The H&P was reviewed, patient examined and no changes noted. Time Seen by Provider: 07:47 Date H&P Reviewed: May 09, 2018 Time H&P Reviewed: 07:47 Pre-Operative Diagnosis: JEANNETTE Watkins DO May 09, 2018 07:47
--- NOTE | 2018-05-09 07:48 | Pre-Op Note & Conscious Sedat ---
Pre-Operative Progress Note H&P Reviewed The H&P was reviewed, patient examined and no changes noted. Date H&P Reviewed: May 09, 2018 Time H&P Reviewed: 07:47 Conscious Sedation Pre-Proced Time Reviewed: 07:47 ASA Class: 3 Airway Mallampati Classification: ([place] appropriate class) I. II. III, IV Lungs Heart ASA score ASA 1: a normal healthy patient ASA 2: a patient with a mild systemic disease (mid diabetes, controlled hypertension, obesity ASA 3: a patient with a severe systemic disease that limits activity (angina , COPD, prior Myocardial infarction) ASA 4: a patient with an incapacitating disease that is a constant threat to life (CHF, renal failure) ASA 5: a moribund patient not expected to survive 24 hrs. (ruptured aneurysm) ASA 6: a declared brain patient whose organs are being harvested. For emergent operations, add the letter E after the classification Grade 3 Sedation Plan: Analgesia, Amnesia, Plan communicated to team members, Discussed options with patient/fam, Discussed risks with patient/fam Note The patient is an appropriate candidate to undergo the planned procedure, sedation, and anesthesia. The patient immediately re-assessed prior to indication. JEANNETTE SEGURA DO May 09, 2018 07:48
--- NOTE | 2018-05-09 07:54 | Pulmonary Procedures ---
Pulmonary Procedures Date of Procedure Date of Service: May 09, 2018 Bronch Bronchoscopy with fluoroscopy bronchoalveolar lavage (BAL), transbronchial washes and, brushes. Preop DX ILD Postop DX: same Complications: none After informed consent obtained and formal time out pt was sedated using Fentanyl and Versed. Bronchoscope was advanced through the nare and vocal cords. 1% lidocaine was used to anesthetize vocal cords, epiglottis, bipin, and left/right main stem bronchus. An anatomical tour was undertaken down to the segmental bronchi bilaterally. No endobronchial lesions noted. From the RML using fluoroscopy a bronchoalveolar lavage (BAL), transbronchial washes and, brushes were obtained. Pt tolerated procedure well. No complications noted. Stat CXR is pending. JEANNTETE SEGURA DO May 09, 2018 07:54
[2018-05-09] MEDS ORDERED: MIDAZOLAM 2 MG/2 ML (VERSED) VIAL ONE ×3 (08:03→08:04)
[2018-05-09] MEDS ORDERED: fentaNYL INJECTION 100 MCG/2 ML AMP ONE ×2 (08:03)
[2018-05-09] MEDS: fentaNYL INJECTION 100 MCG/2 ML AMP IVP PRN ×2 (08:06→08:11)
[2018-05-09] MEDS: MIDAZOLAM 2 MG/2 ML (VERSED) VIAL IVP PRN ×2 (08:07→08:10)
[2018-05-09 09:10] VITALS: BP 122/71
--- NOTE | 2018-05-09 09:15 | Diagnostic Imaging Report ---
INDICATION: Post bronchoscopy COMPARISON: 11/29/2017 FINDINGS: Supine portable view of the chest is obtained. Heart size is normal. The pulmonary vessels appear unremarkable. There is no pneumothorax, mediastinal widening or pleural fluid. The lungs are clear. There are postoperative changes present. IMPRESSION: No acute abnormality is demonstrated. No interval change from the prior study. Dictated by: Dictated on workstation # [id number]
--- NOTE | 2018-05-09 09:18 | Diagnostic Imaging Report ---
INDICATION: Infiltrate, undergoing bronchoscopy. TECHNIQUE: Three intraprocedural images right lower chest. CORRELATION STUDY: 04/27/2018. FINDINGS: Intraprocedure images demonstrate a bronchoscope to be superimposed over the right infrahilar region. Fluoroscopy time: 13 seconds. IMPRESSION: 1. Fluoroscopy utilized for assistance during the bronchoscopy of the right lung base. Dictated by: Dictated on workstation # [id number]
[2018-05-09 09:50] VITALS: BP 127/77
[2018-05-09 10:00] VITALS: BP 127/77
== END 2018-05-09 10:05 | disposition home or self-care (01) ==
LOC: ENDO 07:11
PROVIDERS: ATTEND Internal Medicine Critical Care Medicine
DX: J84.9 Interstitial pulmonary disease, unspecified (principal); J44.9 Chronic obstructive pulmonary disease, unspecified; R91.8 Other nonspecific abnormal finding of lung field
CPT/HCPCS: 71045; 87070; 87101; 87116; 87205; 94640

== ENCOUNTER → 2018-11-17 | Outpatient (CLI) | payer OTHER ==
--- NOTE | 2018-11-17 14:59 | Diagnostic Imaging Report ---
INDICATION: Right hip pain and loss of range of motion. TIME OF EXAMINATION: 02:43 p.m. FINDINGS: Two views of right hip demonstrate normal femoral acetabular alignment. The joint space is well maintained. The femoral head and neck are intact. No fractures are seen. IMPRESSION: No acute bony abnormality is detected. Dictated by: Dictated on workstation # [id number]
--- NOTE | 2018-11-17 15:02 | Diagnostic Imaging Report ---
INDICATION: Low back pain for the last 10 days, increasing in severity. TIME OF EXAMINATION: 02:42 p.m. FINDINGS: Three views of the lumbar spine were obtained. Alignment is normal. There is normal curvature. There is generalized demineralization. Vertebral body heights are maintained without evidence of acute compression fracture. There is multilevel degenerative disc disease with variable disc space narrowing and marginal spurring. Multilevel facet arthropathy is also seen. There is a small calcific density projected just inferior to the right L3 transverse process measuring 6 mm in size. Small ureteral calculus cannot be entirely excluded. No other abnormalities are seen. IMPRESSION: 1. Lumbar demineralization and spondylosis. No acute bony abnormality is detected. 2. Right abdominal calcification. A ureteral calculus cannot be entirely excluded. If there is concern for urinary tract calculi, CT of the urinary tract could be performed. Dictated by: Dictated on workstation # [id number]
== END ==
LOC: RAD 14:03
PROVIDERS: ATTEND Nurse Practitioner Family
DX: M25.551 Pain in right hip (principal); M47.816 Spondylosis without myelopathy or radiculopathy, lumbar region
CPT/HCPCS: 72100; 73502

== ENCOUNTER → 2018-11-21 | Outpatient (CLI) | payer OTHER ==
--- NOTE | 2018-11-21 09:33 | Diagnostic Imaging Report ---
INDICATION: Right flank pain. EXAMINATION: CT abdomen and pelvis without IV contrast. COMPARISON: 10/28/2017. FINDINGS: The visualized portions of the lung bases are clear. There are no pleural fluid collections. There is no free intraperitoneal air. The liver and gallbladder appear normal. The spleen, adrenals, and pancreas appear unremarkable without contrast. The kidneys bilaterally show no radiopaque calculi or hydronephrosis. There is no retroperitoneal mass or adenopathy. There is no ascites or abnormal fluid collection. The visualized bowel loops show prominent stool throughout the colon but no overt obstruction or focal bowel wall thickening. The patient appears to have had prior hysterectomy. There is no evidence of pelvic mass. IMPRESSION: Essentially negative CT abdomen/pelvis without contrast. No evidence of renal stone or hydronephrosis. No abdominal mass or abnormal fluid collection is seen. Dictated by: Dictated on workstation # [id number]
== END ==
LOC: RAD 09:06
PROVIDERS: ATTEND Nurse Practitioner Family
DX: R10.9 Unspecified abdominal pain (principal)
CPT/HCPCS: 74176

== ENCOUNTER 2018-12-12 15:47 | Outpatient (CLI) | payer OTHER ==
[~2018-12-12] VITALS: Ht 167.6 cm; Wt 70.3 kg
[2018-12-12] MEDS ORDERED: NS IV 1000 ML 1,000 ML IV ONE (16:15)
[2018-12-12 16:41] LABS: HEMOGLOBIN 11.5 G/DL (11.5-16.0); RED BLOOD COUNT 3.8 10^6/uL (4.35-5.85); RED CELL DISTRIBUTION WIDTH 11.9 % (10.0-14.5); WHITE BLOOD COUNT 7.7 10^3/uL (4.3-11.0)
[2018-12-12 16:41] LABS: BILIRUBIN,URINE NEGATIVE (NEGATIVE); CLARITY,URINE SLIGHTLY CLOUDY; COLOR,URINE YELLOW; GLUCOSE, URINE (UA) NEGATIVE (NEGATIVE); KETONES,URINE NEGATIVE (NEGATIVE); LEUKOCYTE ESTERASE ,URINE 2+ (NEGATIVE); NITRITE,URINE NEGATIVE (NEGATIVE); PH,URINE 6 (5-9); PROTEIN,URINE 1+ (NEGATIVE); UROBILINOGEN,URINE NORMAL (NORMAL)
[2018-12-12 16:58] LABS: ALANINE AMINOTRANSFERASE 12 U/L (0-55); ALKALINE PHOSPHATASE 90 U/L (40-136); BILIRUBIN,TOTAL 0.3 MG/DL (0.1-1.0); BUN/CREATININE RATIO 19; CALCIUM 9.6 MG/DL (8.5-10.1); CARBON DIOXIDE 24 MMOL/L (21-32); CHLORIDE 104 MMOL/L (98-107); CREATININE SERUM 0.64 MG/DL (0.60-1.30); GFR ESTIMATED > 60; GLUCOSE 96 MG/DL (70-105); SODIUM 139 MMOL/L (135-145); TOTAL PROTEIN 6.9 GM/DL (6.4-8.2)
[2018-12-12 17:00] LABS: BACTERIA,URINE NEGATIVE /HPF; WBC,URINE 0-2 /HPF
[2018-12-12 17:35] VITALS: BP 123/79
== END 2018-12-12 17:35 | disposition home or self-care (01) ==
LOC: SDC 15:47
PROVIDERS: ATTEND Family Medicine
DX: R53.81 Other malaise (principal); R53.83 Other fatigue; R50.9 Fever, unspecified; E86.0 Dehydration
CPT/HCPCS: 36415; 80053; 81000; 83735; 85027; 85652; 86038; 86141; 86308; 86430; 86618; 86666; 86668; 86757; 87804

== ENCOUNTER → 2019-01-02 | Outpatient (CLI) | payer OTHER ==
--- NOTE | 2019-01-02 14:11 | Diagnostic Imaging Report ---
PROCEDURE: CT chest without contrast. TECHNIQUE: Multiple contiguous axial images were obtained through the chest without the use of intravenous contrast. INDICATION: Chest tightness and previous abnormal CT chest. Study is performed for followup. COMPARISON: Comparison is made with prior CT chest from 04/27/2018. FINDINGS: No axillary lymphadenopathy is seen. There are bilateral breast implants. Mediastinal and hilar evaluation is limited without intravenous contrast. There is a calcified lymph node in the right hilum. No pericardial or pleural fluid is detected. Central airways appear patent. Previously noted tree in bud infiltrates in the right middle lobe posteriorly are again noted but slightly less prominent on today's study. The minimal infiltrate in the posterior right lower lobe is similar. No new abnormality is identified. No new infiltrates are seen. Upper abdomen is unremarkable. IMPRESSION: Right lower lobe infiltrate is stable. There has been minimal improvement in the right middle lobe tree in bud infiltrates when compared with the exam from 04/27/2018. No new abnormality is detected. Dictated by: Dictated on workstation # [id number]
== END ==
LOC: RAD 12:50
PROVIDERS: ATTEND Nurse Practitioner Family
DX: J44.9 Chronic obstructive pulmonary disease, unspecified (principal)
CPT/HCPCS: 71250

== ENCOUNTER → 2019-05-08 | Outpatient (CLI) | payer OTHER ==
[~2019-05-08] MED LIST changes: +RT-ALBUTEROL SULF 2.5 MG/3 ML PRE-MIX VIAL INH ONE
== END ==
LOC: RT 09:30
PROVIDERS: ATTEND Nurse Practitioner Family
DX: J44.9 Chronic obstructive pulmonary disease, unspecified (principal)
CPT/HCPCS: 94060; 94726; 94729

== ENCOUNTER 2019-06-05 14:26 | Outpatient (RCR) | payer OTHER ==
[2019-04-26 10:23] LABS: BASOPHILS % (AUTO) 0 % (0-10); EOSINOPHILS % (AUTO) 0 % (0-10); HEMATOCRIT 35 % (35-52); HEMOGLOBIN 12.1 G/DL (11.5-16.0); LYMPHOCYTES # (AUTO) 1.2 X 10^3 (1.0-4.0); LYMPHOCYTES % (AUTO) 14 % (12-44); MEAN CORPUSCULAR HEMOGLOBIN 30 PG (25-34); MEAN CORPUSCULAR HGB CONC 34 G/DL (32-36); MEAN CORPUSCULAR VOLUME 88 FL (80-99); MEAN PLATELET VOLUME 11.2 FL (7.4-10.4); MONOCYTES # (AUTO) 0.3 X 10^3 (0.0-1.0); MONOCYTES % (AUTO) 4 % (0-12); NEUTROPHILS # (AUTO) 7.1 X 10^3 (1.8-7.8); NEUTROPHILS % (AUTO) 82 % (42-75); PLATELET COUNT 255 10^3/uL (130-400); RED CELL DISTRIBUTION WIDTH 12.8 % (10.0-14.5); WHITE BLOOD COUNT 8.6 10^3/uL (4.3-11.0)
[2019-04-26 10:55] LABS: ALANINE AMINOTRANSFERASE 26 U/L (0-55); ALBUMIN 4.3 GM/DL (3.2-4.5); ALKALINE PHOSPHATASE 68 U/L (40-136); BILIRUBIN,TOTAL 0.3 MG/DL (0.1-1.0); BUN/CREATININE RATIO 18; CALCIUM 9.3 MG/DL (8.5-10.1); CARBON DIOXIDE 22 MMOL/L (21-32); CHLORIDE 106 MMOL/L (98-107); CREATININE SERUM 0.74 MG/DL (0.60-1.30); GFR ESTIMATED > 60; GLUCOSE 98 MG/DL (70-105); SODIUM 137 MMOL/L (135-145); TOTAL PROTEIN 6.6 GM/DL (6.4-8.2)
[~2019-06-05 14:26] MED LIST changes: -RT-ALBUTEROL SULF 2.5 MG/3 ML PRE-MIX VIAL INH ONE
== END 2019-07-25 | disposition home or self-care (01) ==
LOC: ONC 14:26
PROVIDERS: ATTEND Internal Medicine Hematology & Oncology
DX: C50.411 Malignant neoplasm of upper-outer quadrant of right female breast (principal)
CPT/HCPCS: 36415; 80053; 85025; 99213

== ENCOUNTER → 2019-07-27 | Outpatient (CLI) | payer OTHER ==
--- NOTE | 2019-07-27 12:04 | Diagnostic Imaging Report ---
PROCEDURE: US Thyroid. TECHNIQUE: Multiple real-time grayscale images were obtained of the thyroid in various projections. INDICATION: Thyroid enlargement. FINDINGS: Right lobe measures 5.5 x 1.1 x 1.7 cm. The left lobe is not visualized and is either hypoplastic or surgically absent. There is a circumscribed hypoechoic nodule lower pole right lobe measuring 1.1 x 0.5 x 0.6 cm. No microcalcifications are seen. IMPRESSION: 1. Solitary nodule lower pole right lobe of the thyroid measuring 11 mm. Followup ultrasound in six months could be performed to confirm stability. 2. Nonvisualized left lobe of the thyroid. Dictated by: Dictated on workstation # [id number]
== END ==
LOC: RAD 09:35
PROVIDERS: ATTEND Family Medicine
DX: E04.1 Nontoxic single thyroid nodule (principal)
CPT/HCPCS: 76536

== ENCOUNTER 2019-08-21 08:30 | Outpatient (CLI) | payer OTHER ==
[~2019-08-21] VITALS: Ht 170.2 cm; Wt 74.9 kg
[2019-08-21] MEDS ORDERED: PRED5TAB PO (08:55)
[2019-08-21] MEDS ORDERED: CYCL5TAB PO (08:55)
[2019-08-21] MEDS ORDERED: MECL-106 PO (08:55)
== END 2019-08-21 09:13 | disposition home or self-care (01) ==
LOC: PREOP 08:30
PROVIDERS: ATTEND Surgery
DX: Z01.818 Encounter for other preprocedural examination (principal)

== ENCOUNTER 2019-08-23 11:39 | Day surgery (SDC) | payer OTHER ==
[~2019-08-23] VITALS: Ht 170.2 cm; Wt 74.9 kg
[2019-08-23] VITALS (13 sets, daily range): BP systolic 92–131; BP diastolic 52–79
[~2019-08-23 11:39] MED LIST changes: +CYCL5TAB PO; +MECL-106 PO; +NS IV 500 ML 500 ML IV PRN; +PRED5TAB PO
[2019-08-23] MEDS ORDERED: NS IV 500 ML 500 ML ONE (11:44)
[2019-08-23] MEDS ORDERED: MIDAZOLAM 2 MG/2 ML (VERSED) VIAL IVP ONE (11:45)
[2019-08-23] MEDS ORDERED: fentaNYL INJECTION 100 MCG/2 ML AMP IVP ONE (11:45)
[2019-08-23] MEDS ORDERED: LIDOCAINE JELLY 2% 6 ML SYRINGE MM PRN (11:45)
[2019-08-23] MEDS ORDERED: LIDOCAINE JELLY 2% 6 ML SYRINGE ONE (13:05)
[2019-08-23] MEDS ORDERED: fentaNYL INJECTION 100 MCG/2 ML AMP ONE ×2 (13:06→13:33)
[2019-08-23] MEDS ORDERED: MIDAZOLAM 2 MG/2 ML (VERSED) VIAL ONE ×5 (13:06→13:33)
--- NOTE | 2019-08-23 13:19 | Conscious Sedation/ASA ---
Conscious Sedation Pre-Proced Time 12:00 ASA Score 2 For ASA 3 and 4: Consider anesthesia and medical clearance. Also, for patients with a history of failed moderate sedation consider anesthesia. Airway Lungs Heart ASA score ASA 1: a normal healthy patient ASA 2: a patient with a mild systemic disease (mid diabetes, controlled hypertension, obesity ASA 3: a patient with a severe systemic disease that limits activity (angina, COPD, prior Myocardial infarction) ASA 4: a patient with an incapacitating disease that is a constant threat to life (CHF, renal failure) ASA 5: a moribund patient not expected to survive 24 hrs. (ruptured aneurysm) ASA 6: a declared brain- patient whose organs are being harvested. For emergent operations, add the letter E after the classification Mallampati Classification Grade 2 Sedation Plan Analgesia, Amnesia, Plan communicated to team members, Discussed options with patient/fam, Discussed risks with patient/fam The patient is an appropriate candidate to undergo the planned procedure, sedation, and anesthesia. The patient immediately re-assessed prior to indication. DANIEL CH MD Aug 23, 2019 13:19
--- NOTE | 2019-08-23 13:19 | Progress Note-Pre Operative ---
Pre-Operative Progress Note H&P Reviewed The H&P was reviewed, patient examined and no changes noted. Date Seen by Provider: Aug 23, 2019 Time Seen by Provider: 12:00 Date H&P Reviewed: Aug 23, 2019 Time H&P Reviewed: 12:00 Pre-Operative Diagnosis: screening DANIEL Hsu MD Aug 23, 2019 13:19
--- NOTE | 2019-08-23 13:23 | Discharge Inst-Surgical ---
D/C Lap Instructions-DIMA Follow Up Appt in 2 weeks Activity as tolerated High Fiber Diet 25g or more per day Avoid Alcohol, Caffeine, Spicy [place] and Acid foods. Drink 64 fluid oz or more of fluids per day. Symptoms to Report: Fever over 101 degree F, Nausea/Vomiting If any problems/questions: Contact your physician or go to Emergency Room DANIEL CH MD Aug 23, 2019 13:23
[2019-08-23] MEDS: fentaNYL INJECTION 100 MCG/2 ML AMP IVP PRN ×3 (13:24→13:36)
[2019-08-23] MEDS ORDERED: ACETAMINOPHEN 325 MG TABLET PO PRN (13:30)
[2019-08-23] MEDS ORDERED: HYDROcodone/APAP 5 MG/325 MG (LORTAB) TAB PO PRN (13:30)
[2019-08-23] MEDS ORDERED: ONDANSETRON 4 MG/2 ML (SDV) Z0FRAN IVP PRN (13:30)
--- NOTE | 2019-08-23 15:31 | Progress Note-Post Operative ---
Post-Operative Progess Note Surgeon (s)/Information Systems Coordinator (s) Surgeon DANIEL CH MD Information Systems Coordinator: none Pre-Operative Diagnosis screening colo Post-Operative Diagnosis mild chronic stage 1 ext and int hemorrhoids, isolated small sigmoid diverticula. Procedure & Operative Findings Date of Procedure 08/23/19 Procedure Performed/Findings colonoscopy Anesthesia Type cs Estimated Blood Loss Estimated blood loss (mL): minimal Specimens/Packing Specimens Removed none DANIEL CH MD Aug 23, 2019 15:30
--- NOTE | 2019-08-23 16:23 | OPERATIVE REPORT ---
DATE OF SERVICE: 08/23/2019 ATTENDING PRIMARY CARE PHYSICIAN: Dr. Gilliland. PREOPERATIVE DIAGNOSIS: Screening colonoscopy. POSTOPERATIVE DIAGNOSES: Mild stage I external and internal hemorrhoids, isolated mild sigmoid diverticulosis. PROCEDURE: Colonoscopy. SURGEON: Daniel Ch MD ANESTHESIA: Conscious sedation. ESTIMATED BLOOD LOSS: Minimal. FINDINGS: Mild stage I external and internal hemorrhoids, isolated mild sigmoid diverticulosis. DISPOSITION: The patient tolerated the procedure well. INDICATIONS: The patient is a 59-year-old female in need of a screening colonoscopy. She has not had a colonoscopy up to this point in her life. She states that she is doing well, does not report any major issues with diarrhea nor constipation as well as no red blood per rectum nor any dark tarry stools. She also does not report any family history of colon cancer. DESCRIPTION OF PROCEDURE: The patient was brought to the endoscopy suite, laid in the left lateral decubitus position. After adequate IV pain and sedative medications and conscious sedation anesthesia, a digital rectal examination was performed, which revealed mild stage I external and internal hemorrhoids, not actively edematous nor inflamed and no bleeding. Normal sphincter tone was felt and there were no palpable masses. The endoscope was then intubated into the anus and rectum was gently insufflated. The endoscope was then advanced through the valves of [place] of the rectum with no polyps or any neoplasms identified. We then proceeded through the sigmoid colon where a few very small isolated diverticula identified with no mucosal inflammatory changes to indicate any diverticulitis. The endoscope was then advanced to the remainder of the descending, transverse and ascending colon to the cecum. These segments were normal. There were no polyps or any neoplasms identified throughout the colon or rectum. The endoscope was then slowly withdrawn while taking a second look and suctioning of residual air with no additional findings. The patient tolerated the procedure well. We will recommend conservative medical therapy with a high fiber diet with at least 25 grams of fiber daily as well as significant amounts of water to promote soft stools on a daily basis. She does not need another colonoscopy for another 10 years. Job ID: [id number] DocumentID: [id number] Dictated Date: 08/23/2019 13:54:42 Tile Inspector Date: 08/23/2019 16:22:53 Dictated By: DANIEL CH MD
== END 2019-08-23 14:45 | disposition home or self-care (01) ==
LOC: ENDO 11:39
PROVIDERS: ATTEND Surgery
DX: Z12.11 Encounter for screening for malignant neoplasm of colon (principal); K57.30 Diverticulosis of large intestine without perforation or abscess without bleeding; K64.0 First degree hemorrhoids; K64.8 Other hemorrhoids; M35.3 Polymyalgia rheumatica; E55.9 Vitamin D deficiency, unspecified; G47.00 Insomnia, unspecified; Z90.710 Acquired absence of both cervix and uterus; Z88.5 Allergy status to narcotic agent; Z85.3 Personal history of malignant neoplasm of breast; Z79.899 Other long term (current) drug therapy; Z80.3 Family history of malignant neoplasm of breast; Z82.49 Family history of ischemic heart disease and other diseases of the circulatory system; Z80.0 Family history of malignant neoplasm of digestive organs

== ENCOUNTER → 2020-11-13 | Outpatient (CLI) | payer OTHER ==
[~2020-11-13] MED LIST changes: -ASCO500T5 PO; +ASCO500T71 PO; -CALC-6 PO; +CALC1TAB84 PO; +HOLD METFORMIN - RECEIVED CONTRAST 20 ML VIAL IV SCH; +IOHEXOL 350 MG/ML 100 ML (OMNIPAQUE 350) VIAL IV ONE; -MECL-106 PO; +MECL-149 PO; +NS 100 ML (IVPB) BAG IV ONE; -NS IV 500 ML 500 ML IV PRN
--- NOTE | 2020-11-13 12:51 | Diagnostic Imaging Report ---
CLINICAL INDICATION: Patient with right neck pain for a few months. Possible enlarged lymph node per ultrasound. Patient has history of thyroid nodule. EXAM: Axial CT scan of the neck soft tissue performed with 75 mL of Omnipaque 350 IV contrast. Sagittal and coronal reformatted images are created. Auto Exposure Controls were utilized during the CT exam to meet ALARA standards for radiation dose reduction. COMPARISON: CT scan of the neck and chest and abdomen with contrast dated 10/31/2017. Ultrasound of the thyroid gland dated 07/27/2019. FINDINGS: Again noted absent left thyroid. The isthmus and right thyroid gland are present. Right thyroid gland nodule is seen. Again noted 7 mm low-density nodule in the right thyroid region. Stable post resection changes, or atrophy and fatty infiltration of the right parotid gland. The remainder of the salivary glands is unremarkable. The nasopharynx, oropharynx, hypopharynx, and laryngeal soft tissue structures are unremarkable. The visualized portions of the lower cavity, tongue, sublingual and submandibular regions are unremarkable. Neck vascular structures are unremarkable. There is no significant lymphadenopathy. Again noted lymph nodes with fatty hilum posterior to the left thyroid bed region. Largest one measures roughly 11 mm x 8 mm. This does not appear significantly pathologic with prominent fatty hilum. This is grossly similar. Cervical spine degenerative disease is seen. Limited visualization of the intracranial structures and orbits and globes is unremarkable. Paranasal sinuses and mastoid air cells are clear. Visualized upper lung de [place] are clear. IMPRESSION: 1: Stable CT scan of the neck with no developing mass, lymphadenopathy, or inflammatory process. 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 Stable small lymph nodes posterior to the left thyroid bed with prominent fatty hilum, which do not appear significantly pathologic. 3: Again seen right thyroid lobe nodules. Dictated by: Dictated on workstation # [id number]
== END ==
LOC: RAD 11:32
PROVIDERS: ATTEND Nurse Practitioner Family
DX: E04.2 Nontoxic multinodular goiter (principal); R13.10 Dysphagia, unspecified; Z85.3 Personal history of malignant neoplasm of breast; Z90.89 Acquired absence of other organs
CPT/HCPCS: 70491

== ENCOUNTER → 2021-10-03 | Outpatient (CLI) | payer OTHER ==
[~2021-10-03] MED LIST changes: -HOLD METFORMIN - RECEIVED CONTRAST 20 ML VIAL IV SCH; -IOHEXOL 350 MG/ML 100 ML (OMNIPAQUE 350) VIAL IV ONE; -NS 100 ML (IVPB) BAG IV ONE
--- NOTE | 2021-10-03 14:29 | Diagnostic Imaging Report ---
EXAMINATION: US Upper Extremity Venous Duplex Right. TECHNIQUE: Multiple real-time grayscale images were obtained over the right upper extremity in various projections. Additional spectral analysis and color Doppler duplex images were also obtained. HISTORY: Swelling COMPARISON: None available. FINDINGS: The right jugular vein, subclavian vein, cephalic vein and axillary vein are patent with normal alanis scale and Doppler appearance. The veins of the distal arm are patent. There is normal respiratory variation and augmentation. IMPRESSION: 1. No DVT of the right upper extremity. Dictated by: Dictated on workstation # [id number]
== END ==
LOC: RAD 14:00
PROVIDERS: ATTEND Nurse Practitioner Family
DX: R22.31 Localized swelling, mass and lump, right upper limb (principal)

== ENCOUNTER → 2022-04-17 | Outpatient (CLI) | payer OTHER ==
--- NOTE | 2022-04-17 11:16 | Diagnostic Imaging Report ---
INDICATION: Rib pain PA and lateral chest Heart size and pulmonary vascularity are normal. Lungs are clear. There are no effusions or pneumothoraces. Patient has had bilateral axillary lymph node dissection. IMPRESSION: No acute abnormalities in the chest. Dictated by: Dictated on workstation # [id number]
--- NOTE | 2022-04-17 13:24 | Diagnostic Imaging Report ---
INDICATION: Rib pain EXAM: PA chest and oblique views of both ribs are obtained. FINDINGS: The lungs are clear. There are no effusions or pneumothoraces. There are no displaced rib fractures seen. IMPRESSION: Unremarkable bilateral ribs. Dictated by: Dictated on workstation # [id number]
== END ==
LOC: RAD
PROVIDERS: ATTEND Nurse Practitioner Family
DX: R07.81 Pleurodynia (principal); M85.80 Other specified disorders of bone density and structure, unspecified site; R91.8 Other nonspecific abnormal finding of lung field
CPT/HCPCS: 71046; 71110

== ENCOUNTER → 2022-04-27 | Outpatient (CLI) | payer OTHER ==
--- NOTE | 2022-04-27 14:49 | Diagnostic Imaging Report ---
PROCEDURE: CT chest without contrast. TECHNIQUE: Multiple contiguous axial images were obtained through the chest without the use of intravenous contrast. Auto Exposure Controls were utilized during the CT exam to meet ALARA standards for radiation dose reduction. INDICATION: Bilateral lower rib pain. History of previous bilateral mastectomies and reconstruction. COMPARISON with chest x-ray x-ray 04/17/2022 FINDINGS: Noncontrasted images show the lungs to be well-aerated. There is a tree-in-bud area of wedge-shaped infiltrate posteriorly in the mid right upper lobe. There is also a small wedge-shaped area of [id number]-type infiltrate posteriorly in right lung base. The lungs are otherwise clear. No masses are seen. No mediastinal or hilar adenopathy of pathologic size. No pleural effusions or pericardial effusion. The adrenal glands are not enlarged. No bony lesions are seen. IMPRESSION: 1. Tree-in-bud pattern noted in the right upper lobe and right lower lobe. No discrete masses or adenopathy noted. This is most likely inflammatory in nature and could be acute or chronic. Dictated by: Dictated on workstation # [id number]
== END ==
LOC: RAD 11:15
PROVIDERS: ATTEND Nurse Practitioner Family
DX: R91.8 Other nonspecific abnormal finding of lung field (principal); R07.81 Pleurodynia; R07.9 Chest pain, unspecified
CPT/HCPCS: 71250